=== PATIENT | female | born 1970 | race African-American/Black ===

== ENCOUNTER 2023-09-19 12:04 | Emergency (ER) | payer OTHER ==
[~2023-09-19] VITALS: Ht 162.6 cm; Wt 79.4 kg
[2023-09-19 13:03] VITALS: BP 117/75; PULSE 64; RESP 16; TEMP 98.2; O2SAT 98
[2023-09-19] MEDS ORDERED: NAPR-1176 MT (14:02)
[2023-09-19] MEDS ORDERED: CHLO473M2 MT (14:02)
== END 2023-09-19 14:14 | disposition home or self-care (01) ==
LOC: ER 12:04
DX: K14.6 Glossodynia (principal)
CPT/HCPCS: 99282; Z7610